=== PATIENT | male | born 1950 | race Caucasian/White ===

== ENCOUNTER 2021-01-09 07:24 | Inpatient (IN) | payer MEDICARE ==
[~2021-01-09] VITALS: Ht 177.8 cm; Wt 92.1 kg
[~2021-01-09 07:24] MED LIST: ACETAMINOPHEN 325 MG TABLET PO PRN; CEFAZOLIN 1,000 MG ONE; EPHEDRINE 50 MG/ML, 1ML IVPush PRN; GENTAMICIN 80 MG/2 ML ONE; HYDROmorphone 1 MG/ML, 1ML INJ IVPush PRN; LABETALOL 5MG/ML, 20ML IV PRN; METHOCARBAMOL 1,000 MG in DEXTROSE 5% 100 ML IV PRN; ONDANSETRON 2MG/ML, 2ML IVPush PRN; OXYcodone 5 MG/5 ML ORAL.SOL UDC PO PRN; PROMETHAZINE 25 MG/ML, 1ML IVPush PRN; hydrALAzine 20 MG/ML, 1ML IV PRN
[2021-01-09] MEDS ORDERED: CHLORHEXIDINE 15 ML UDC PO ONE (08:00)
[2021-01-09] MEDS ORDERED: LACTATED RINGERS 1,000 ML IV SCH (08:00)
[2021-01-09] MEDS ORDERED: PLEASE ENTER ALLERGIES MC SCH (08:00)
[2021-01-09 08:03] VITALS: BP 110/68
[2021-01-09] MEDS ORDERED: CHLORHEXIDINE 15 ML UDC ONE (08:07)
[2021-01-09] MEDS ORDERED: TRAZ50TA66 PO (08:19)
[2021-01-09] MEDS ORDERED: TAMS-11 PO (08:19)
[2021-01-09] MEDS ORDERED: FENTANYL PF 250 MCG/5ML ONE (09:04)
[2021-01-09] MEDS ORDERED: CEFAZOLIN 1,000 MG ONE (09:37)
[2021-01-09] MEDS ORDERED: SUCCINYLCHOLINE 20 MG/ML, 10ML ONE (09:37)
[2021-01-09] MEDS ORDERED: ROCURONIUM 10MG/ML,5ML ONE (09:37)
[2021-01-09] MEDS ORDERED: NEOSTIGMINE 1 MG/ML, 10ML ONE (09:37)
[2021-01-09] MEDS ORDERED: PROPOFOL 10 MG/ML, 20ML ONE (09:37)
[2021-01-09] MEDS ORDERED: GLYCOPYRROLATE 0.2MG/1ML, 5ML ONE (09:37)
[2021-01-09] MEDS ORDERED: ONDANSETRON 2MG/ML, 2ML ONE (09:37)
[2021-01-09] MEDS ORDERED: DEXAMETHASONE 4 MG/ML, 1ML ONE (09:37)
[2021-01-09] MEDS ORDERED: LIDOCAINE-MPF 2% ,5ML ONE (09:38)
[2021-01-09] MEDS ORDERED: PROPOFOL 50 ML ONE ×2 (09:40→10:19)
[2021-01-09] MEDS ORDERED: FENTANYL PF 100 MCG/2ML ONE (11:10)
[2021-01-09] MEDS: FENTANYL PF 100 MCG/2ML IV PRN ×2 (11:16→11:32)
[2021-01-09] MEDS ORDERED: LABETALOL 5MG/ML, 20ML IV PRN (14:00)
[2021-01-09] MEDS ORDERED: OXYcodone IR 5MG TABLET PO PRN (14:00)
[2021-01-09] MEDS ORDERED: DIPHENHYDRAMINE 25 MG CAPSULE PO PRN (14:00)
[2021-01-09] MEDS ORDERED: ONDANSETRON 2MG/ML, 2ML IV PRN (14:00)
[2021-01-09] MEDS ORDERED: PROMETHAZINE 25 MG/ML, 1ML IM PRN (14:00)
[2021-01-09] MEDS ORDERED: HYDROmorphone 2 MG/ML, 1ML IVPush PRN (14:00)
[2021-01-09] MEDS ORDERED: METHOCARBAMOL 1,000 MG in DEXTROSE 5% 100 ML IV ONE (14:00)
[2021-01-09] MEDS ORDERED: SODIUM CHLORIDE 0.9% 1,000ML IV PRN (14:00)
[2021-01-09] MEDS ORDERED: BISACODYL 10 MG SUPP PR PRN (14:00)
[2021-01-09] MEDS ORDERED: MAGNESIUM HYDROXIDE 8%, 30ML UDC PO PRN (14:00)
[2021-01-09] MEDS: HYDROcodone/APAP 10/325 MG TABLET PO PRN ×2 (16:38→23:58)
[2021-01-09] MEDS: D5%-0.9% NACL+KCL 20MEQ 1,000 ML IV SCH (16:44)
[2021-01-09] MEDS: CEFAZOLIN PMX 1GM/50ML 50 ML IVPB SCH (17:43)
[2021-01-09] MEDS: METHOCARBAMOL 750 MG in DEXTROSE 5% 100 ML IV SCH (19:32)
[2021-01-09 20:05] VITALS: BP 111/63
[2021-01-09] MEDS: TRAZODONE 50MG TABLET PO SCH (20:39)
[2021-01-09] MEDS ORDERED: METHOCARBAMOL 750 MG in DEXTROSE 5% 100 ML IV SCH (22:00)
[2021-01-10 00:19] VITALS: BP 101/63
[2021-01-10] MEDS: CEFAZOLIN PMX 1GM/50ML 50 ML IVPB SCH ×3 (00:55→23:12)
[2021-01-10] MEDS: METHOCARBAMOL 750 MG in DEXTROSE 5% 100 ML IV SCH ×2 (04:00→17:38)
[2021-01-10] MEDS: D5%-0.9% NACL+KCL 20MEQ 1,000 ML IV SCH ×5 (04:00→21:23)
[2021-01-10 04:16] VITALS: BP 103/64
[2021-01-10 05:41] LABS: BASOPHILS % (AUTO) 0 % (0-1); EOSINOPHILS % (AUTO) 0 % (1-7); LYMPHOCYTES % (AUTO) 9 % (22-44); MEAN CORPUSCULAR HEMOGLOBIN 32.2 pg (27.5-34.5); MEAN CORPUSCULAR HGB CONC 34.5 g/dL (33.2-36.2); MEAN PLATELET VOLUME 8.6 fL (7.4-10.4); MONOCYTES % (AUTO) 6 % (2-9); NEUTROPHILS % (AUTO) 85 % (42-75); PLATELET COUNT 190 x10^3/uL (130-400); RED BLOOD COUNT 4.24 x10^6/uL (4.38-5.82); RED CELL DISTRIBUTION WIDTH 12.2 % (9.4-14.8)
[2021-01-10 06:01] LABS: ANION GAP 4 mmol/L (5-15); CHLORIDE 112 mmol/L (98-107)
[2021-01-10 06:05] LABS: CREATININE 0.86 mg/dL (0.7-1.3)
[2021-01-10] MEDS ORDERED: MIDAZOLAM 1 MG/ML, 2ML ONE (06:18)
[2021-01-10] MEDS ORDERED: PROPOFOL 100 ML ONE (06:18)
[2021-01-10] MEDS ORDERED: FENTANYL PF 250 MCG/5ML ONE (06:18)
[2021-01-10] MEDS ORDERED: BUPIVACAINE/PF 0.5% ONE (06:20)
[2021-01-10] MEDS ORDERED: GENTAMICIN 80 MG/2 ML ONE (06:20)
[2021-01-10] MEDS ORDERED: VANCOMYCIN 1,000 MG ONE (06:20)
[2021-01-10] MEDS ORDERED: EPINEPHRINE 1 MG/ML, 1ML ONE (06:21)
[2021-01-10] MEDS ORDERED: SUCCINYLCHOLINE 20 MG/ML, 10ML ONE (06:23)
[2021-01-10] MEDS ORDERED: hydrALAzine 20 MG/ML, 1ML IV PRN (06:30)
[2021-01-10] MEDS ORDERED: HYDROmorphone 1 MG/ML, 1ML INJ IVPush PRN (06:30)
[2021-01-10] MEDS ORDERED: MEPERIDINE/PF 25MG/0.5ML IVPush PRN (06:30)
[2021-01-10] MEDS ORDERED: PROMETHAZINE 25 MG/ML, 1ML IVPush PRN (06:30)
[2021-01-10] MEDS ORDERED: ONDANSETRON 2MG/ML, 2ML IVPush PRN ×2 (06:30→09:00)
[2021-01-10] MEDS ORDERED: FENTANYL PF 100 MCG/2ML IV PRN (06:30)
[2021-01-10] MEDS ORDERED: DIAZEPAM 5 MG/ML, 2ML IVPush PRN (06:30)
[2021-01-10] MEDS ORDERED: METHOCARBAMOL 1,000 MG in DEXTROSE 5% 100 ML IV PRN (06:30)
[2021-01-10] MEDS ORDERED: LABETALOL 5MG/ML, 20ML IV PRN (06:30)
[2021-01-10] MEDS ORDERED: OXYcodone 5 MG/5 ML ORAL.SOL UDC PO PRN (06:30)
[2021-01-10] MEDS ORDERED: DEXAMETHASONE 4 MG/ML, 1ML ONE ×2 (06:52)
[2021-01-10] MEDS: SENNA/DOCUSATE TABLET PO SCH (07:25)
[2021-01-10] MEDS ORDERED: BUPIVACAINE/PF-EPI 0.5% 1:200K INFIL ONE ×2 (07:55→08:31)
[2021-01-10] MEDS ORDERED: GENTAMICIN 80 MG/2 ML IV ONE (07:55)
[2021-01-10] MEDS ORDERED: THROMBIN 5,000 UNIT VIAL TP ONE (07:55)
[2021-01-10] MEDS ORDERED: VANCOMYCIN 1,000 MG IM ONE (07:55)
[2021-01-10] MEDS ORDERED: ONDANSETRON 2MG/ML, 2ML ONE (08:31)
[2021-01-10] MEDS ORDERED: PROMETHAZINE 25 MG/ML, 1ML IM PRN (09:00)
[2021-01-10] MEDS ORDERED: SENNA/DOCUSATE TABLET PO PRN (09:00)
[2021-01-10] MEDS ORDERED: PHARMACY MAY ADJ FOR RENAL FX MC PRN (09:00)
[2021-01-10] MEDS ORDERED: MAGNESIUM HYDROXIDE 8%, 30ML UDC PO PRN (09:00)
[2021-01-10] MEDS ORDERED: LABETALOL 5MG/ML, 20ML IVPush PRN (09:00)
[2021-01-10] MEDS ORDERED: METHOCARBAMOL 750 MG TABLET PO PRN (09:00)
[2021-01-10] MEDS ORDERED: DIPHENHYDRAMINE 50 MG/ML, 1ML IVPush PRN (09:00)
[2021-01-10] MEDS ORDERED: DIPHENHYDRAMINE 50 MG/ML, 1ML IM PRN (09:00)
[2021-01-10] MEDS ORDERED: BISACODYL 10 MG SUPP PR PRN (09:00)
[2021-01-10] MEDS ORDERED: DIPHENHYDRAMINE 50 MG CAPSULE PO PRN (09:00)
[2021-01-10] MEDS ORDERED: OXYcodone 5 MG/5 ML ORAL.SOL UDC ONE (09:10)
[2021-01-10] MEDS: TAMSULOSIN 0.4 MG CAP.ER.24H PO SCH ×2 (10:14)
[2021-01-10] MEDS: SODIUM CHLORIDE FLUSH 10ML SYR IVF SCH ×2 (10:15→21:00)
[2021-01-10 12:00] VITALS: BP 109/66
[2021-01-10] MEDS: HYDROcodone/APAP 10/325 MG TABLET PO PRN ×2 (14:32→18:33)
[2021-01-10 19:20] VITALS: BP 107/64
[2021-01-10] MEDS: TRAZODONE 50MG TABLET PO SCH ×3 (21:00→21:22)
[2021-01-11 00:07] VITALS: BP 97/59
[2021-01-11] MEDS: METHOCARBAMOL 750 MG in DEXTROSE 5% 100 ML IV SCH ×2 (01:09→20:15)
[2021-01-11 04:19] VITALS: BP 98/62
[2021-01-11] MEDS: HYDROcodone/APAP 10/325 MG TABLET PO PRN ×4 (04:43→21:08)
[2021-01-11 05:00] LABS: BASOPHILS % (AUTO) 0 % (0-1); EOSINOPHILS % (AUTO) 0 % (1-7); LYMPHOCYTES % (AUTO) 11 % (22-44); MEAN CORPUSCULAR HEMOGLOBIN 32.1 pg (27.5-34.5); MEAN CORPUSCULAR HGB CONC 33.6 g/dL (33.2-36.2); MEAN PLATELET VOLUME 8.5 fL (7.4-10.4); MONOCYTES % (AUTO) 8 % (2-9); NEUTROPHILS % (AUTO) 81 % (42-75); PLATELET COUNT 175 x10^3/uL (130-400); RED BLOOD COUNT 3.81 x10^6/uL (4.38-5.82); RED CELL DISTRIBUTION WIDTH 12.7 % (9.4-14.8)
[2021-01-11 05:12] LABS: ANION GAP 1 mmol/L (5-15); CALCIUM 8.7 mg/dL (8.5-10.1); CHLORIDE 111 mmol/L (98-107)
[2021-01-11 05:15] LABS: CREATININE 0.82 mg/dL (0.7-1.3)
[2021-01-11] MEDS: D5%-0.9% NACL+KCL 20MEQ 1,000 ML IV SCH ×3 (06:14→19:55)
[2021-01-11 07:06] VITALS: BP 101/62
[2021-01-11] MEDS ORDERED: FENTANYL PF 250 MCG/5ML ONE (08:24)
[2021-01-11] MEDS: TAMSULOSIN 0.4 MG CAP.ER.24H PO SCH ×2 (08:29→08:31)
[2021-01-11] MEDS: SODIUM CHLORIDE FLUSH 10ML SYR IVF SCH ×2 (08:30→20:16)
[2021-01-11] MEDS ORDERED: PROPOFOL 50 ML ONE ×2 (08:31→08:35)
[2021-01-11] MEDS: SENNA/DOCUSATE TABLET PO SCH (08:31)
[2021-01-11] MEDS ORDERED: LORazepam 2 MG/ML, 1ML IVPush PRN (09:30)
[2021-01-11] MEDS ORDERED: LABETALOL 5MG/ML, 20ML IV PRN (09:30)
[2021-01-11] MEDS ORDERED: PROMETHAZINE 25 MG/ML, 1ML IVPush PRN (09:30)
[2021-01-11] MEDS ORDERED: MEPERIDINE/PF 25MG/0.5ML IVPush PRN (09:30)
[2021-01-11] MEDS ORDERED: HYDROmorphone 1 MG/ML, 1ML INJ IVPush PRN ×2 (09:30→11:30)
[2021-01-11] MEDS ORDERED: METHOCARBAMOL 1,000 MG in DEXTROSE 5% 100 ML IV PRN (09:30)
[2021-01-11] MEDS ORDERED: OXYcodone 5 MG/5 ML ORAL.SOL UDC PO PRN (09:30)
[2021-01-11] MEDS ORDERED: ACETAMINOPHEN 325 MG TABLET PO PRN (09:30)
[2021-01-11] MEDS ORDERED: THROMBIN 5,000 UNIT VIAL TP ONE (10:20)
[2021-01-11] MEDS ORDERED: VANCOMYCIN 1,000 MG IVPB ONE (10:20)
[2021-01-11] MEDS ORDERED: GENTAMICIN 80 MG/2 ML IV ONE (10:20)
[2021-01-11] MEDS ORDERED: BUPIVACAINE/PF-EPI 0.5% 1:200K INFIL ONE (10:20)
[2021-01-11] MEDS ORDERED: SUCCINYLCHOLINE 20 MG/ML, 10ML ONE (11:05)
[2021-01-11] MEDS ORDERED: CEFAZOLIN 1,000 MG ONE (11:05)
[2021-01-11] MEDS ORDERED: NEOSTIGMINE 1 MG/ML, 10ML ONE (11:05)
[2021-01-11] MEDS ORDERED: ROCURONIUM 10MG/ML,5ML ONE (11:05)
[2021-01-11] MEDS ORDERED: DEXAMETHASONE 4 MG/ML, 1ML ONE (11:05)
[2021-01-11] MEDS ORDERED: ONDANSETRON 2MG/ML, 2ML ONE (11:05)
[2021-01-11] MEDS ORDERED: PROPOFOL 10 MG/ML, 20ML ONE (11:05)
[2021-01-11] MEDS ORDERED: GLYCOPYRROLATE 0.2MG/1ML, 5ML ONE (11:05)
[2021-01-11] MEDS ORDERED: PHARMACY MAY ADJ FOR RENAL FX MC PRN (11:30)
[2021-01-11] MEDS ORDERED: SENNA/DOCUSATE TABLET PO PRN (11:30)
[2021-01-11] MEDS ORDERED: LABETALOL 5MG/ML, 20ML IVPush PRN (11:30)
[2021-01-11] MEDS ORDERED: MAGNESIUM HYDROXIDE 8%, 30ML UDC PO PRN (11:30)
[2021-01-11] MEDS ORDERED: ONDANSETRON 2MG/ML, 2ML IVPush PRN (11:30)
[2021-01-11] MEDS ORDERED: PROMETHAZINE 25 MG/ML, 1ML IM PRN (11:30)
[2021-01-11] MEDS ORDERED: DIPHENHYDRAMINE 50 MG CAPSULE PO PRN (11:30)
[2021-01-11] MEDS ORDERED: FENTANYL PF 100 MCG/2ML ONE ×2 (11:55→12:49)
[2021-01-11] MEDS ORDERED: OXYcodone 5 MG/5 ML ORAL.SOL UDC ONE (11:55)
[2021-01-11] MEDS: FENTANYL PF 100 MCG/2ML IV PRN ×4 (12:00→12:40)
[2021-01-11] MEDS: NS + 20MEQ KCL 1,000 ML IV SCH (13:41)
[2021-01-11 14:42] VITALS: BP 114/73
[2021-01-11] MEDS: METHOCARBAMOL 750 MG TABLET PO SCH ×2 (14:48→21:16)
[2021-01-11 19:00] VITALS: BP 109/69
[2021-01-11] MEDS: CEFAZOLIN PMX 1GM/50ML 50 ML IVPB SCH (19:20)
[2021-01-11] MEDS: TRAZODONE 50MG TABLET PO SCH ×2 (19:57→20:20)
[2021-01-11 23:41] VITALS: BP 91/53
[2021-01-12] MEDS: HYDROcodone/APAP 10/325 MG TABLET PO PRN ×4 (02:33→17:37)
[2021-01-12] MEDS: CEFAZOLIN PMX 1GM/50ML 50 ML IVPB SCH (03:27)
[2021-01-12] MEDS: NS + 20MEQ KCL 1,000 ML IV SCH ×2 (03:28→16:40)
[2021-01-12] MEDS: METHOCARBAMOL 750 MG in DEXTROSE 5% 100 ML IV SCH (04:20)
[2021-01-12 04:24] VITALS: BP 97/61
[2021-01-12 04:56] LABS: BASOPHILS % (AUTO) 0 % (0-1); EOSINOPHILS % (AUTO) 0 % (1-7); LYMPHOCYTES % (AUTO) 12 % (22-44); MEAN CORPUSCULAR HEMOGLOBIN 32.1 pg (27.5-34.5); MEAN CORPUSCULAR HGB CONC 33.7 g/dL (33.2-36.2); MEAN PLATELET VOLUME 8.8 fL (7.4-10.4); MONOCYTES % (AUTO) 11 % (2-9); NEUTROPHILS % (AUTO) 78 % (42-75); PLATELET COUNT 157 x10^3/uL (130-400); RED BLOOD COUNT 3.49 x10^6/uL (4.38-5.82); RED CELL DISTRIBUTION WIDTH 12.6 % (9.4-14.8)
[2021-01-12 05:06] LABS: CALCIUM 8.4 mg/dL (8.5-10.1); CHLORIDE 111 mmol/L (98-107); CREATININE 0.86 mg/dL (0.7-1.3)
[2021-01-12 05:12] LABS: ANION GAP 3 mmol/L (5-15)
[2021-01-12] MEDS: ENOXAPARIN 40 MG/0.4 ML SQ SCH (06:43)
[2021-01-12 07:00] VITALS: BP 98/62
[2021-01-12] MEDS: SENNA/DOCUSATE TABLET PO SCH (08:25)
[2021-01-12] MEDS: TAMSULOSIN 0.4 MG CAP.ER.24H PO SCH (08:25)
[2021-01-12] MEDS: SODIUM CHLORIDE FLUSH 10ML SYR IVF SCH ×2 (08:25→20:53)
[2021-01-12] MEDS ORDERED: HYDR1TAB53 PO (10:09)
[2021-01-12] MEDS ORDERED: METH-640 PO (10:09)
[2021-01-12] MEDS: METHOCARBAMOL 750 MG TABLET PO SCH ×2 (12:01→20:51)
[2021-01-12 13:10] VITALS: BP 118/74
[2021-01-12 20:23] VITALS: BP 118/61
[2021-01-12] MEDS: TRAZODONE 50MG TABLET PO SCH ×2 (20:52→20:53)
[2021-01-13] MEDS: ONDANSETRON ODT 4 MG PO PRN ×2 (02:35→09:55)
[2021-01-13] MEDS: METHOCARBAMOL 750 MG TABLET PO SCH (02:35)
[2021-01-13 03:19] VITALS: BP 111/65
[2021-01-13] MEDS: NS + 20MEQ KCL 1,000 ML IV SCH (05:02)
[2021-01-13] MEDS: ENOXAPARIN 40 MG/0.4 ML SQ SCH (06:37)
[2021-01-13 07:25] VITALS: BP 108/71
[2021-01-13] MEDS: SENNA/DOCUSATE TABLET PO SCH (09:31)
[2021-01-13] MEDS: TAMSULOSIN 0.4 MG CAP.ER.24H PO SCH (09:31)
[2021-01-13] MEDS: SODIUM CHLORIDE FLUSH 10ML SYR IVF SCH (09:31)
[2021-01-13 10:00] VITALS: BP 110/74
== END 2021-01-13 10:03 | disposition home or self-care (01) | DRG 455 ==
LOC: ORIP 07:24 → 4NE 12:36
PROVIDERS: ADMIT Neurological Surgery; ATTEND Neurological Surgery
PROC: 0SB40ZZ Excision of Lumbosacral Disc, Open Approach (ICD-10-PCS; 2021-01-09)
PROC: 0SG30A0 Fusion of Lumbosacral Joint with Interbody Fusion Device, Anterior Approach, Anterior Column, Open Approach (ICD-10-PCS; principal; 2021-01-09 09:30)
PROC: 0SG00A0 Fusion of Lumbar Vertebral Joint with Interbody Fusion Device, Anterior Approach, Anterior Column, Open Approach (ICD-10-PCS; 2021-01-10)
PROC: 0SB20ZZ Excision of Lumbar Vertebral Disc, Open Approach (ICD-10-PCS; 2021-01-10)
PROC: 4A11X4G Monitoring of Peripheral Nervous Electrical Activity, Intraoperative, External Approach (ICD-10-PCS; 2021-01-10)
PROC: 0SG3071 Fusion of Lumbosacral Joint with Autologous Tissue Substitute, Posterior Approach, Posterior Column, Open Approach (ICD-10-PCS; 2021-01-11)
PROC: 0SG0071 Fusion of Lumbar Vertebral Joint with Autologous Tissue Substitute, Posterior Approach, Posterior Column, Open Approach (ICD-10-PCS; 2021-01-11)
PROC: 8E0W0CZ Robotic Assisted Procedure of Trunk Region, Open Approach (ICD-10-PCS; 2021-01-11)
PROC: 4A1134G Monitoring of Peripheral Nervous Electrical Activity, Intraoperative, Percutaneous Approach (ICD-10-PCS; 2021-01-11)
DX: M48.061 Spinal stenosis, lumbar region without neurogenic claudication (principal); M51.17 Intervertebral disc disorders with radiculopathy, lumbosacral region; G89.29 Other chronic pain; M51.16 Intervertebral disc disorders with radiculopathy, lumbar region; M48.07 Spinal stenosis, lumbosacral region; R11.0 Nausea; Z20.822 Contact with and (suspected) exposure to COVID-19; Z88.6 Allergy status to analgesic agent
CPT/HCPCS: 36415; 72100; 72131; 74018; 80048; 85025; 87635; 95938; 95941; C1713; C1729; C1776; G0378; J0171; J0690; J1100; J1650; J2250; J2405; J2704; J2710; J3010; J3370; J3480; Q0162; C1760; C1763; C1769; J0330; J1580; J2800